=== PATIENT | female | born 1975 | race Caucasian/White ===

== ENCOUNTER 2018-03-06 14:29 | Emergency (ER) | payer MEDICARE, MEDICAID ==
[~2018-03-06] VITALS: Ht 162.6 cm; Wt 128.0 kg
[~2018-03-06 14:29] MED LIST: ALBU18HF2 IH; IBUP-1984 PO; METH-603 PO; NORCO10T PO
[2018-03-06 14:42] VITALS: BP 157/103
== END 2018-03-06 15:08 | disposition home or self-care (01) ==
LOC: ER 14:29
DX: L20.9 Atopic dermatitis, unspecified (principal); G43.909 Migraine, unspecified, not intractable, without status migrainosus; J45.909 Unspecified asthma, uncomplicated; G89.29 Other chronic pain; M54.9 Dorsalgia, unspecified; Z90.49 Acquired absence of other specified parts of digestive tract; Z90.710 Acquired absence of both cervix and uterus; Z88.1 Allergy status to other antibiotic agents; Z88.8 Allergy status to other drugs, medicaments and biological substances
CPT/HCPCS: 99284

== ENCOUNTER 2018-05-13 18:28 | Emergency (ER) | payer MEDICARE, MEDICAID ==
[~2018-05-13] VITALS: Ht 160 cm; Wt 131.0 kg
[2018-05-13] MEDS ORDERED: magnesium 2GM in 50ml NS 50 ML IV ONE (20:05)
[2018-05-13] MEDS ORDERED: acetaminophen 325mg tablet PO ONE (20:05)
[2018-05-13] MEDS ORDERED: aspirin 325mg tablet PO ONE (20:05)
[2018-05-13] MEDS ORDERED: proCHLORperazine 10 MG/2 ml inj IV ONE (20:05)
[2018-05-13] MEDS ORDERED: normal saline 1000ml 1,000 ML IV ONE (20:05)
[2018-05-13] MEDS ORDERED: diphenhydrAMINE 50 mg/ml inj IV ONE (20:05)
[2018-05-13 20:25] VITALS: BP 171/111
--- NOTE | 2018-05-13 20:25 | NUR ---
Patient medicated and updated on POC.
--- NOTE | 2018-05-13 20:41 | NUR ---
Saline and magnesium stopped at patient's request. She states her migraine is gone and wouuld liek to go home. Dr. Rush notified. Patient is now DC ready.
== END 2018-05-13 21:02 | disposition home or self-care (01) ==
LOC: ER 18:29
DX: G43.909 Migraine, unspecified, not intractable, without status migrainosus (principal); J45.909 Unspecified asthma, uncomplicated; G89.29 Other chronic pain; Z90.49 Acquired absence of other specified parts of digestive tract; Z90.710 Acquired absence of both cervix and uterus; Z90.89 Acquired absence of other organs; Z79.899 Other long term (current) drug therapy
CPT/HCPCS: 96365; 96375; 99284; J0780; J1200; J3475; J7030

== ENCOUNTER 2018-12-01 19:56 | Emergency (ER) | payer MEDICARE, MEDICAID ==
[~2018-12-01] VITALS: Ht 160 cm; Wt 127.7 kg
[2018-12-01 19:58] VITALS: BP 151/83
[2018-12-01] MEDS ORDERED: dexamethasone 4mg tablet PO ONE (20:25)
[2018-12-01] MEDS ORDERED: SULF1TAB49 PO (20:34)
[2018-12-01] MEDS ORDERED: BETA15CR4 TOP (20:34)
== END 2018-12-01 20:48 | disposition home or self-care (01) ==
LOC: ER 19:57
DX: L23.7 Allergic contact dermatitis due to plants, except food (principal); G43.909 Migraine, unspecified, not intractable, without status migrainosus; J45.909 Unspecified asthma, uncomplicated; G89.29 Other chronic pain; Z90.49 Acquired absence of other specified parts of digestive tract; Z90.710 Acquired absence of both cervix and uterus; Z98.890 Other specified postprocedural states; Z79.899 Other long term (current) drug therapy
CPT/HCPCS: 99283; J8540

== ENCOUNTER 2019-06-10 09:43 | Emergency (ER) | payer MEDICARE, MEDICAID ==
[~2019-06-10] VITALS: Ht 160 cm; Wt 133.1 kg
[~2019-06-10 09:43] MED LIST changes: +BETA15CR4 TOP
[2019-06-10 10:48] VITALS: BP 163/99
[2019-06-10] MEDS ORDERED: ketorolac tromethamine 15mg/ml inj. IM ONE (12:05)
[2019-06-10] MEDS ORDERED: diphenhydrAMINE 50 mg/ml inj IM ONE (12:05)
[2019-06-10] MEDS ORDERED: proCHLORperazine 10 MG/2 ml inj IM ONE (12:05)
== END 2019-06-10 13:04 | disposition home or self-care (01) ==
LOC: ER 09:44
DX: G43.909 Migraine, unspecified, not intractable, without status migrainosus (principal); J45.909 Unspecified asthma, uncomplicated; G89.29 Other chronic pain; F41.9 Anxiety disorder, unspecified; F43.9 Reaction to severe stress, unspecified; Z90.49 Acquired absence of other specified parts of digestive tract; Z90.710 Acquired absence of both cervix and uterus; Z79.82 Long term (current) use of aspirin; Z79.899 Other long term (current) drug therapy; Z90.89 Acquired absence of other organs
CPT/HCPCS: 96372; 99284; J0780; J1200; J1885

== ENCOUNTER 2020-08-03 03:18 | Emergency (ER) | payer MEDICARE, MEDICAID ==
[~2020-08-03] VITALS: Ht 160 cm; Wt 138.2 kg
[2020-08-03 03:35] VITALS: BP 183/109
[2020-08-03] MEDS ORDERED: ondansetron 4mg rapidly disintigrating tab PO ONE (03:45)
[2020-08-03] MEDS ORDERED: famotidine 20mg tablet PO ONE (03:45)
[2020-08-03] MEDS ORDERED: LIDOcaine Viscous 15ml cup MM ONE (03:45)
[2020-08-03] MEDS ORDERED: mag hydrox/Alum hydrox/simeth 30ml oral suspension PO ONE (03:45)
[2020-08-03] MEDS ORDERED: dicyclomine 10mg/ml 2ml ampule IM ONE (03:50)
[2020-08-03] MEDS ORDERED: sucralfate 1gm/10ml UD suspension PO ONE (04:35)
[2020-08-03] MEDS ORDERED: proCHLORperazine 10mg tablet PO ONE (04:35)
--- NOTE | 2020-08-03 04:37 | NUR ---
per [facility], urine and blood samples not required at this time.
== END 2020-08-03 05:16 | disposition home or self-care (01) ==
LOC: ER 03:18
DX: K29.00 Acute gastritis without bleeding (principal); R10.13 Epigastric pain; R11.10 Vomiting, unspecified; G43.909 Migraine, unspecified, not intractable, without status migrainosus; J45.909 Unspecified asthma, uncomplicated; K21.9 Gastro-esophageal reflux disease without esophagitis; G89.29 Other chronic pain; F41.9 Anxiety disorder, unspecified; Z90.49 Acquired absence of other specified parts of digestive tract; Z90.710 Acquired absence of both cervix and uterus; Z90.89 Acquired absence of other organs; Z98.890 Other specified postprocedural states; Z79.899 Other long term (current) drug therapy
CPT/HCPCS: 96372; 99284; J0500; Q0164

== ENCOUNTER 2021-07-20 16:49 | Emergency (ER) | payer MEDICARE, MEDICAID ==
[~2021-07-20] VITALS: Ht 160 cm; Wt 134.1 kg
[2021-07-20 16:57] VITALS: BP 140/109
[2021-07-20 17:37] LABS: URINE HCG NEGATIVE (NEG)
[2021-07-20 17:40] LABS: CLARITY,URINE CLOUDY (Clear); GLUCOSE, URINE NEGATIVE (Neg); KETONES,URINE NEGATIVE (Neg); LEUKOCYTE ESTERASE ,URINE NEGATIVE (Neg); NITRITES, URINE POSITIVE (Neg); OCCULT BLOOD,URINE LARGE (Neg); PROTEIN,URINE 30 mg/dl (Neg)
[2021-07-20 17:46] LABS: COLOR,URINE AMBER (Yellow); UA COLLECTION TYPE CLN CATCH MIDSTREAM
[2021-07-20 17:47] LABS: BACTERIA,URINE 1+ /HPF (Neg); MUCUS STRANDS FEW /LPF (Neg); RBC,URINE TNTC /HPF (0-2); SQUAMOUS EPITHELIAL CELL,UR MODERATE /LPF (FEW)
[2021-07-20] MEDS ORDERED: NITR100C6 PO (18:40)
[2021-07-20] MEDS ORDERED: phenazopyridine 100mg tablet PO ONE (18:45)
[2021-07-20] MEDS ORDERED: nitrofuran monohydrate/nitrofuran macrocrysal 100 MG (MacroBID) capsule PO ONE (18:45)
== END 2021-07-20 19:02 | disposition home or self-care (01) ==
LOC: ER 16:49
DX: N39.0 Urinary tract infection, site not specified (principal); G43.909 Migraine, unspecified, not intractable, without status migrainosus; J45.909 Unspecified asthma, uncomplicated; K21.9 Gastro-esophageal reflux disease without esophagitis; G89.29 Other chronic pain; Z87.440 Personal history of urinary (tract) infections; Z90.49 Acquired absence of other specified parts of digestive tract; Z98.891 History of uterine scar from previous surgery; Z90.710 Acquired absence of both cervix and uterus; Z79.899 Other long term (current) drug therapy; Z86.73 Personal history of transient ischemic attack (TIA), and cerebral infarction without residual deficits
CPT/HCPCS: 81001; 81025; 87077; 87088; 87186; 99283

== ENCOUNTER 2023-02-18 12:38 | Emergency (ER) | payer MEDICARE, MEDICAID ==
[~2023-02-18] VITALS: Ht 160 cm; Wt 124.1 kg
[~2023-02-18 12:38] MED LIST changes: +NITR100C6 PO
[2023-02-18 13:20] VITALS: BP 195/117; PULSE 87; RESP 19; O2SAT 96
--- NOTE | 2023-02-18 13:38 | NUR ---
pt airway patent, respiratory unlabored with out any signs of distress, patient pulse normal and stong
[2023-02-18] MEDS ORDERED: DIPH25CA83 PO (14:42)
[2023-02-18] MEDS ORDERED: methylPREDNISolone sod succ 125mg/2ml vial IM ONE (14:45)
[2023-02-18] MEDS ORDERED: diphenhydrAMINE 50 mg/ml inj IM ONE (14:45)
[2023-02-18 15:31] VITALS: TEMP 97.5
--- NOTE | 2023-02-19 12:45 | NUR ---
PT. DOCUMENTATION COMPLETED BY CABLE ARMORER HAS BEEN REVIEWED AND CONCUR WITH CABLE ARMORER.
== END 2023-02-18 15:42 | disposition home or self-care (01) ==
LOC: ER 12:39
DX: L24.89 Irritant contact dermatitis due to other agents (principal); G43.909 Migraine, unspecified, not intractable, without status migrainosus; J45.909 Unspecified asthma, uncomplicated; G89.29 Other chronic pain; M54.9 Dorsalgia, unspecified; F31.9 Bipolar disorder, unspecified; Z79.899 Other long term (current) drug therapy
CPT/HCPCS: 96372; 99284; J1200; J2930

== ENCOUNTER 2023-02-20 15:05 | Emergency (ER) | payer MEDICARE, MEDICAID ==
[~2023-02-20] VITALS: Ht 160 cm; Wt 123.6 kg
[~2023-02-20 15:05] MED LIST changes: +DIPH25CA83 PO
[2023-02-20 15:27] VITALS: BP 149/105; PULSE 92; RESP 18; TEMP 97.7; O2SAT 97
[2023-02-20] MEDS ORDERED: predniSONE 20 mg tablet PO ONE (16:05)
[2023-02-20] MEDS ORDERED: PRED20TA PO (16:29)
[2023-02-20] MEDS ORDERED: TRIA15CR61 TOP (16:29)
--- NOTE | 2023-02-20 16:40 | NUR ---
I have reviewed and agree with all interventions, assessments performed and documented by JESSICA Joseph.
== END 2023-02-20 16:40 | disposition home or self-care (01) ==
LOC: ER 15:05
DX: L25.9 Unspecified contact dermatitis, unspecified cause (principal); K21.9 Gastro-esophageal reflux disease without esophagitis; G43.909 Migraine, unspecified, not intractable, without status migrainosus; F31.9 Bipolar disorder, unspecified; Z90.49 Acquired absence of other specified parts of digestive tract
CPT/HCPCS: 99283; J7512

== ENCOUNTER 2023-02-23 18:46 | Emergency (ER) | payer MEDICARE, MEDICAID ==
[~2023-02-23] VITALS: Ht 160 cm; Wt 122.7 kg
[~2023-02-23 18:46] MED LIST changes: +PRED20TA PO; +TRIA15CR61 TOP
[2023-02-23 18:54] VITALS: BP 168/113; PULSE 99; RESP 16; O2SAT 97
[2023-02-23] MEDS ORDERED: dexamethasone sod phosphate 10mg/ml inj IM STA (19:28)
[2023-02-23] MEDS ORDERED: DEC4T PO (19:37)
== END 2023-02-23 20:09 | disposition home or self-care (01) ==
LOC: ER 18:47
DX: L23.7 Allergic contact dermatitis due to plants, except food (principal)
CPT/HCPCS: 96372; 99283; J1100

== ENCOUNTER 2023-09-08 17:36 | Emergency (ER) | payer MEDICARE, MEDICAID ==
[~2023-09-08] VITALS: Ht 160 cm; Wt 128.2 kg
[~2023-09-08 17:36] MED LIST changes: -PRED20TA PO; -TRIA15CR61 TOP
[2023-09-08 17:44] VITALS: BP 185/117; PULSE 95; RESP 18; TEMP 97.6; O2SAT 98
[2023-09-08] MEDS ORDERED: KEN0.1O TOP (18:02)
[2023-09-08] MEDS ORDERED: HYDR-3686 PO (18:02)
[2023-09-08] MEDS: triamcinolone acetonide 40mg/ml inj IM ONE (18:30)
== END 2023-09-08 18:35 | disposition home or self-care (01) ==
LOC: ER 17:36
DX: L23.7 Allergic contact dermatitis due to plants, except food (principal); G43.909 Migraine, unspecified, not intractable, without status migrainosus; J45.909 Unspecified asthma, uncomplicated; K21.9 Gastro-esophageal reflux disease without esophagitis; G89.29 Other chronic pain; M54.9 Dorsalgia, unspecified; F41.9 Anxiety disorder, unspecified; F32.A Depression, unspecified; Z90.49 Acquired absence of other specified parts of digestive tract
CPT/HCPCS: 96372; 99283; J3301

== ENCOUNTER 2023-12-16 16:29 | Emergency (ER) | payer MEDICARE, MEDICAID ==
[~2023-12-16] VITALS: Ht 160 cm; Wt 140.2 kg
[2023-12-16] MEDS ORDERED: CEPH-585 PO (17:32)
[2023-12-16] MEDS: cephalexin 250mg capsule PO ONE (18:05)
[2023-12-16] MEDS: bacitracin 15gm ointment TP ONE (18:05)
[2023-12-16 18:11] VITALS: BP 140/80; PULSE 88; RESP 18; TEMP 97.8; O2SAT 99
== END 2023-12-16 18:12 | disposition home or self-care (01) ==
LOC: ER 16:30
DX: L03.012 Cellulitis of left finger (principal); L03.011 Cellulitis of right finger; G43.909 Migraine, unspecified, not intractable, without status migrainosus; J45.909 Unspecified asthma, uncomplicated; K21.9 Gastro-esophageal reflux disease without esophagitis; G89.29 Other chronic pain; M54.9 Dorsalgia, unspecified; F41.9 Anxiety disorder, unspecified; F32.A Depression, unspecified; Z79.899 Other long term (current) drug therapy; Z79.1 Long term (current) use of non-steroidal anti-inflammatories (NSAID); Z79.2 Long term (current) use of antibiotics; Z90.49 Acquired absence of other specified parts of digestive tract; Z98.890 Other specified postprocedural states; Z90.710 Acquired absence of both cervix and uterus
CPT/HCPCS: 99283

== ENCOUNTER 2024-12-04 00:12 | Emergency (ER) | payer MEDICARE, MEDICAID ==
[~2024-12-04] VITALS: Ht 160 cm; Wt 144.1 kg
[~2024-12-04 00:12] MED LIST changes: +CEPH-585 PO
[2024-12-04 00:48] VITALS: TEMP 97.6
[2024-12-04] MEDS: ketorolac trometh 15mg/ml vial 15 MG/ML ML IV ONE (02:29)
--- NOTE | 2024-12-04 03:10 | Physician Documentation ---
History of Present Illness ~ Chief Complaint: Headache Stated Complaint: MIRGAINE Time Seen by MD: 02:02 Primary Medical Doctor: DR FERRARO Source: patient Mode of Arrival: POV Exam Limitations: no limitations Medication Reconciliation Allergies: Coded Allergies: No Known Allergies (Unverified , 12/16/23) Scheduled Albuterol Sulfate (Ventolin Hfa), 2 PUFFS IH PRN, (Reported) Betamethasone Dipropionate (Betamethasone Dipropionate), 1 APPLIC TOP Q12H Cephalexin*Monohydrate* (Keflex*), 1 CAP PO QID Hydrocodone Bit/Acetaminophen 10/325 MG* ([place] 10/325 MG*), 1 TAB PO Q8H, (Reported) Ibuprofen* (Motrin*), 800 MG PO PRN, (Reported) Methadone Hcl* (Dolophine*), 2 TAB PO Q4H, (Reported) Nitrofurantoin Monohyd/M-Cryst (Macrobid 100 mg Capsule), 1 CAP PO Q12H Scheduled PRN Diphenhydramine Hcl (Benadryl), 25 MG PO Q6H PRN for itching Past Medical History Past Medical History: Migraine, Asthma, GERD, UTI, Chronic Back Pain, Anxiety, Depression Past Surgical History: cholecystectomy, , hysterectomy, tonsillectomy Alcohol Use: None Drug Use: none Lives with: Spouse Lives In: Home Physical Exam Vital Signs: Temperature: 97.6, Source: Temporal, Heart Rate: 90, Respiratory Rate: 18, BP: 167/120, Pulse Oximetry: 97, Weight: 144.090 Oxygen Flow Rate: 0 Progress Results/Orders Results/Orders Completed Orders - JAVIER WOOD MD Prochlorperazine Inj (Compazine Inj) (12/04/24 02:10) Diphenhydramine Inj (Benadryl Inj.) (12/04/24 02:10) Ketorolac Trometh 15mg/Ml Vial (Toradol (12/04/24 02:10) Ondansetron Inj. (Zofran 4mg/2ml Vial) (12/04/24 03:15) Morphine 4mg/Ml Inj. (Morphine Inj.) (12/04/24 03:15) Medications Received in ER Medications (Trade) Dose Ordered Sig/Aly Route PRN Reason Start Time Stop Time Status Last Admin Dose Admin (Compazine inj) 10 mg ONCE ONCE IV 12/04/24 02:10 12/04/24 02:12 DC 12/04/24 02:28 10 MG (Benadryl inj.) 50 mg ONCE ONCE IV 12/04/24 02:10 12/04/24 02:12 DC 12/04/24 02:33 50 MG (Toradol injection) 15 mg ONCE ONCE IV 12/04/24 02:10 12/04/24 02:12 DC 12/04/24 02:29 15 MG Vital Signs 12/04/24 12/04/24 12/04/24 00:48 02:29 03:30 Temp 97.6 Pulse 90 84 Resp 18 18 18 B/P (MAP) 167/120 158/95 Pulse Ox 97 96 O2 Flow Rate 0 Departure Time of Disposition: 03:08 Disposition: 01 HOME / SELF CARE / HOMELESS Impression: Primary Impression: Migraine Qualified Codes: G43.919 - Migraine, unspecified, intractable, without status migrainosus Discharge Instructions: Chronic Migraine Headache, [id number] Additional Instructions: FOLLOW UP WITH YOUR DOCTOR NEEDED. RETURN IF SYMPTOMS RECUR. Education Educated: Patient, Family Educated regarding: diagnosis, treatment, need for follow up JAVIER WOOD MD Dec 04, 2024 03:09
[2024-12-04] MEDS ORDERED: morphine 4 MG/ML inj SYRINge IV PRN (03:15)
[2024-12-04] MEDS: ondansetron/PF 4mg/2ml inj IV ONE (03:20)
[2024-12-04 03:30] VITALS: BP 158/95; PULSE 84; RESP 18; O2SAT 96
== END 2024-12-04 03:31 | disposition home or self-care (01) ==
LOC: ER 00:12
DX: G43.919 Migraine, unspecified, intractable, without status migrainosus (principal); K21.9 Gastro-esophageal reflux disease without esophagitis; F41.9 Anxiety disorder, unspecified; F32.A Depression, unspecified; J45.909 Unspecified asthma, uncomplicated; Z79.899 Other long term (current) drug therapy; Z90.49 Acquired absence of other specified parts of digestive tract; Z90.710 Acquired absence of both cervix and uterus
CPT/HCPCS: 96374; 96375; 99284; J0780; J1200; J1885

== ENCOUNTER 2025-01-29 00:49 | Inpatient (IN) | payer MEDICARE, MEDICAID ==
[~2025-01-29] VITALS: Ht 160 cm; Wt 140.3 kg
[~2025-01-29 00:49] MED LIST changes: -CEPH-585 PO
[2025-01-29 02:24] LABS: MEAN PLATELET VOLUME 7.1 FL (7.4-10.4); RED CELL DISTRIBUTION WIDTH 14.9 % (11.5-14.5)
[2025-01-29 02:32] LABS: CREATININE 0.96 MG/DL (0.40-0.90); TOTAL CARBON DIOXIDE 29.1 MMOL/L (24-32); eCRCL 59 ML/MIN; eGFR 62 ML/MIN
--- NOTE | 2025-01-29 03:39 | RADIOLOGY REPORT ---
CHEST RADIOGRAPH Indication: sepsis r/o Technique: 1 view Comparison: None FINDINGS: Lines and Tubes: None Lungs/Pleura: No focal consolidation, pleural effusion or pneumothorax. Cardiomediastinum: Unremarkable. Other: No acute osseous abnormality. IMPRESSION: 1. No acute cardiopulmonary abnormality.
--- NOTE | 2025-01-29 04:38 | Physician Documentation ---
History of Present Illness ~ Chief Complaint: Leg Pain Stated Complaint: POSS STAPH INFECTION Time Seen by MD: 04:02 OK to notify your PCP?: Yes Primary Medical Doctor: DR FERRARO Source: patient, RN/, RN notes reviewed, old records Mode of Arrival: POV, Ambulatory Exam Limitations: no limitations HPI This pleasant female presents with some left ankle drummond erythema redness and cellulitis. Patient states it happened spontaneously about three days ago she was visiting an uncle but no bites no trauma just noticed who was a burning sensation next day it was red then she started having fevers chills today she was sweaty with some nausea aches pains some myalgias just not doing well. She became concerned she circled the area tonight she started feeling really bad this morning looked at her leg in the redness has expanded moving up her leg and with the fevers she thought she should come in for evaluation. She is otherwise in good health she denies smoking she denies diabetes she denies history of significant infections. She is now here for evaluation and care. Tetanus witin 5 years: No Medication Reconciliation Allergies: Coded Allergies: No Known Allergies (Unverified , 12/16/23) Scheduled Albuterol Sulfate (Ventolin Hfa), 2 PUFFS IH PRN, (Reported) Betamethasone Dipropionate (Betamethasone Dipropionate), 1 APPLIC TOP Q12H Hydrocodone Bit/Acetaminophen 10/325 MG* ([place] 10/325 MG*), 1 TAB PO Q8H, (Reported) Ibuprofen* (Motrin*), 800 MG PO PRN, (Reported) Methadone Hcl* (Dolophine*), 2 TAB PO Q4H, (Reported) Nitrofurantoin Monohyd/M-Cryst (Macrobid 100 mg Capsule), 1 CAP PO Q12H Scheduled PRN Diphenhydramine Hcl (Benadryl), 25 MG PO Q6H PRN for itching Past Medical History Past Medical History: Migraine, Asthma, GERD, UTI, Chronic Back Pain, Anxiety, Depression Past Surgical History: cholecystectomy, , hysterectomy, tonsillectomy Alcohol Use: None Drug Use: none Lives with: Spouse Lives In: Home Review of Systems All Other Systems at this time: Reviewed and Negative Physical Exam Vital Signs: RN Vital Signs have been reviewed: Yes, Temperature: 98.7, Source: Oral, Heart Rate: 101, Respiratory Rate: 18, BP: 150/101, Pulse Oximetry: 98, Weight: 140.300 Oxygen Flow Rate: 0 Physical Exam General: The patient is well developed, well nourished, nontoxic appearing and is in no acute distress. Skin: [place], warm and dry with no rashes. HEENT: Head was normocephalic and atraumatic. Eyes - pupils equal, round, reactive to light and accommodation. Extraocular movements were intact. Conjunctivae were nonicteric. The mouth and oropharynx were clear with moist mucous membranes. Neck: Supple and nontender. There was no jugular venous distention, l ymphadenopathy, Chest: Clear to auscultation bilaterally without wheezes, rales or rhonchi. No accessory muscle use. Heart: Rate regular rapid and rhythmic. S1, S2. No murmurs. Palpation of the chest wall was normal. Abdomen: Soft, nontender and nondistended. Positive bowel sounds. No guarding or rebound. Extremities: No cyanosis, clubbing positive trace bilateral edema. The patient moves all extremities. Pulses were equal and symmetric. Left drummond there is a large area of erythema warm to touch slightly tender no fluctuance no induration. Neurologic: Cranial nerves II-XII were intact. Sensation was intact to light touch throughout. Motor strength was 5/5 in all four extremities. Deep tendon reflexes were intact in both upper and lower extremities. Psychologic: The patient was oriented to person, place and time. The patient demonstrated appropriate judgement and insight. Progress Progress Note Hospitalist admitted the patient for further workup and care. Results/Orders Reviewed/noted all lab results: Yes Results/Orders Orders - GENA GARRISON MD Culture Blood (01/29/25 01:44) Urinalysis, Cult If Indicated (01/29/25 01:44) Chest,Single View (01/29/25 01:44) Monitor (01/29/25 01:44) Saline Lock (01/29/25 01:44) Potassium Cl Sr Tablet (K-Dur Tablet) (01/29/25 04:10) Page Hospitalist (01/29/25 04:42) Fill Out Med Reconciliation (01/29/25 04:42) Vancomycin 1gm 200ml H20 (Peg) (Vancomyc (01/29/25 04:50) Completed Orders - GENA GARRISON MD Cbc/Diff (01/29/25 01:44) Chest,Single View (01/29/25 01:44) Procalcitonin (01/29/25 01:44) BMP (01/29/25 01:44) Lacticsepsis (01/29/25 01:44) MG (01/29/25 02:09) Ceftriaxone/H4t-Qwafsxfu 1gm (Rocephin 1 (01/29/25 04:50) Medications Received in ER Medications (Trade) Dose Ordered Sig/Aly Route PRN Reason Start Time Stop Time Status Last Admin Dose Admin (K-DUR tablet) 40 meq ONCE PRN PO Potassium 3.0 or less 01/29/25 04:10 02/01/25 04:09 01/29/25 04:54 40 MEQ Ceftriaxone Sodium 50 ml @ 100 mls/hr ONCE ONCE IV 01/29/25 04:50 01/29/25 05:19 DC 01/29/25 04:59 100 MLS/HR Vital Signs 01/29/25 01/29/25 01/29/25 00:56 02:50 02:50 Temp 98.7 Pulse 109 101 Resp 16 18 16 B/P (MAP) 154/117 150/101 (117) Pulse Ox 98 98 O2 Flow Rate 0 Laboratory Tests Test 01/29/25 02:09 White Blood Count 13.4 H Red Blood Count 4.85 Hemoglobin 13.0 Hematocrit 38.3 Mean Corpuscular Volume 79.0 Mean Corpuscular Hemoglobin 26.8 L Mean Corpuscular Hemoglobin Concent 34.0 Red Cell Distribution Width 14.9 H Platelet Count 284 Mean Platelet Volume 7.1 L Neutrophils (%) (Auto) 77.4 H Lymphocytes (%) (Auto) 13.8 L Monocytes (%) (Auto) 7.5 Eosinophils (%) (Auto) 1.0 Basophils (%) (Auto) 0.3 Neutrophils # (Auto) 10.4 H Lymphocytes # (Auto) 1.9 Monocytes # (Auto) 1.0 H Eosinophils # (Auto) 0.1 Basophils # (Auto) 0.0 CBC Comment Sodium Level 139 Potassium Level 2.8 *L Chloride Level 100 Carbon Dioxide Level 29.1 Anion Gap 10 Blood Urea Nitrogen 18 Creatinine 0.96 H Estimated GFR/1.73 m2 62 BUN/Creatinine Ratio 18.8 Glucose Level 201 H Lactic Acid Level 1.1 Calcium Level 8.9 Magnesium Level 1.9 Albumin 3.1 L Procalcitonin 0.18 Chemistry Comments Microbiology Date/Time Source Procedure Growth Status 01/29/25 02:09 Blood Arm Right Blood Culture - Preliminary NEGATIVE (LESS THAN 24 HOURS) Resulted Re-Evaluation Re-Evaluation : Re-Evaluation: Improved Progress Patient was seen and examined. Patient is given reassurance. Patient has received IV fluids antibiotics blood cultures were obtained laboratory work was obtained. Patient showing some signs of SIRS no sepsis at this time. Patient does have a slight leukocytosis with a WBC of 13.4 hemoglobin hematocrit are both normal at 13 and 38 with 77% neutrophils. Patient's chemistry shows significant hypokalemia with a potassium of 2.8. Magnesium 1.9. Kidney functions were reassuring procalcitonin 0.18 and lactic acid 1.1. The patient received vancomycin and Rocephin. Patient is doing better with medications but will require admission. She does not appear well at this time. Chest x-ray was obtained and was reassuring. Continuous equipment monitor phototypesetting interpretation shows sinus tachycardia heart rate 100s, abnormal, my interpretation. Pulse oximetry monitor interpretation shows normal oxygenation at 98% room air, normal, my interpretation. EKG/XRAY/CT/US/VASC/MRI Chest X-Ray : Additional Comments CHEST RADIOGRAPH Indication: sepsis r/o Technique: 1 view Comparison: None FINDINGS: Lines and Tubes: None Lungs/Pleura: No focal consolidation, pleural effusion or pneumothorax. Cardiomediastinum: Unremarkable. Other: No acute osseous abnormality. IMPRESSION: 1. No acute cardiopulmonary abnormality. Electronically Signed by:JOY VEGA MD Date & Time: 01/29/25 0337 Dictated by: JOY VEGA MD Dictation date and time: 01/29/25 0154 Primary Care Provider: NO PRIMARY CARE PROVIDER Medical Decision Making Additional info obtained from: old records Ankle Diff Dx:Considerations: Include: Sprain, Septic, Other Departure Disposition: ADMITTED INPATIENT Admitted to Inpatient Unit: yes, to hospitalist Admission Level of Care: Med/Surg with Tele Impression: Primary Impression: Cellulitis of leg without foot, left Additional Impression: Hypokalemia Condition: Fair Referrals: NO PRIMARY CARE PROVIDER (PCP) Education Educated: Patient Educated regarding: diagnosis, treatment, prognosis, need for follow up Signature Scribe Signature: No scribed Attestation: The note accurately reflects work and decisions made by me.Gena Garrison MD 01/29/25 04:38 GENA GARRISON MD Jan 29, 2025 04:38
[2025-01-29] MEDS: VANCOMYCIN 1GM 200ML H20 (PEG) 200 ML IV ONE (04:50)
[2025-01-29] MEDS: potassium Cl 20 mEq SR tablet PO PRN ×2 (04:54→19:57)
[2025-01-29] MEDS: CefTRIAXone/D5W-Rocephin 1gm 50 ML IV ONE (04:59)
[2025-01-29] MEDS ORDERED: mag hydrox/Alum hydrox/simeth 30ml oral suspension PO PRN (05:15)
[2025-01-29] MEDS ORDERED: potassium Cl 20 mEq SR tablet PO PRN (05:15)
[2025-01-29] MEDS ORDERED: magnesium Cl slow-release 64mg tablet PO PRN (05:15)
[2025-01-29] MEDS ORDERED: magnesium sulf-water 2g/50mL 50 ML IV PRN (05:15)
[2025-01-29] MEDS ORDERED: magnesium hydroxide 30ml (MOM) UD suspension PO PRN (05:15)
[2025-01-29] MEDS ORDERED: HYDROcodone/acetaminophen 5mg/325mg tablet PO PRN (05:15)
[2025-01-29] MEDS ORDERED: potassium Cl 40MEQ/1/2NS 520ml 520 ML IV PRN (05:15)
[2025-01-29] MEDS ORDERED: magnesium sulf-water 4G/100mL 100 ML IV PRN (05:15)
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
[2025-01-29] MEDS: VANCOmycin 1250MG/NS 250ml Bag 250 ML IV ONE ×2 (06:01→09:02)
[2025-01-29] MEDS ORDERED: heparin, porcine 5000 units/ml vial SQ SCH (08:00)
[2025-01-29] MEDS: K and/or MAG REPLACEMENT MC SCH (08:00)
[2025-01-29] MEDS: pantoprazole 40mg Tablet.DR PO SCH (08:01)
[2025-01-29] MEDS: lactobacillus rhamnosus 10,000 MMU CELLS/CAPSULE PO SCH (09:05)
[2025-01-29] MEDS: docusate sod 100mg capsule PO SCH (09:05)
--- NOTE | 2025-01-29 09:14 | VASCULAR REPORT ---
[facility] Vascular Department [facility] [address] [place] [address] [email or web address] [place] [facility] Name : ANDERSON LING Date : 01/29/2025 Accession# : [id number] Birthdate : 1975 Sex : F Age : 49Y Heart Surgeon : Rex Garcia RVT Referring Dr. : BECKY CHAVES, Preliminary Report The above named patient was referred for a NON-INVASIVE LOWER EXTREMITY VENOUS EXAMINATION. The evaluation includes grayscale imaging, color flow Doppler and spectral analysis of the major deep and superficial lower extremity veins. Left Lower Extremity Venous Study for DVT Patient IN-PATIENT InaRSations Left lower extremity pain/swelling Risk Factors Obesity Vein Imaging (Left) CFV (L): Compressible, Spontaneous, Respirophasic, Augmentation Reflux: ms SFJ (L): Compressible, Spontaneous, Respirophasic, Augmentation Reflux: ms FEM (L): Compressible, Spontaneous, Respirophasic, Augmentation Reflux: ms POP (L): Compressible, Spontaneous, Respirophasic, Augmentation Reflux: ms DFV (L): Compressible, Spontaneous, Respirophasic, Augmentation Reflux: ms PTV (L): Compressible, Spontaneous, Respirophasic, Augmentation Reflux: ms GSV (L): Compressible, Spontaneous, Respirophasic, Augmentation Reflux: ms Peroneals (L): Compressible, Spontaneous, Respirophasic, Augmentation Reflux: ms Impression: No sonographic evidence for thrombus detected by image in the deep or superficial venous systems of the left lower extremity. All vessels interrogated were compressible and augment with distal compressions. Spontaneous, respirophasic flow is noted throughout the left lower extremity. Incidental finding: Prominent hyper vascularized lymph nodes seen in the left groin measuring 1.1 cm x 3.6 cm in transverse.
[2025-01-29 10:00] VITALS: BP 152/91; PULSE 97; RESP 18; TEMP 98.6
[2025-01-29 11:00] VITALS: RESP 16; O2SAT 96
[2025-01-29] MEDS: ringers solution, lacted 1,000 ML IV ONE ×3 (11:02→12:42)
[2025-01-29] MEDS: ringers solution, lacted 1,000 ML IV SCH (12:42)
[2025-01-29 13:13] LABS: LEUKOCYTE ESTERASE ,URINE SMALL (Neg); NITRITES, URINE POSITIVE (Neg); OCCULT BLOOD,URINE TRACE-INTACT (Neg)
[2025-01-29 13:22] LABS: UA COLLECTION TYPE NON-SPECIFIED
[2025-01-29 13:31] LABS: MUCUS STRANDS FEW /LPF (Neg); SQUAMOUS EPITHELIAL CELL,UR MODERATE /LPF (FEW)
[2025-01-29 13:35] LABS: URINE AMPHETAMINE SCREEN NEGATIVE (Neg); URINE BARBITUATE SCREEN NEGATIVE (Neg); URINE BENZODIAZEPINES SCREEN NEGATIVE (Neg); URINE COCAINE SCREEN NEGATIVE (Neg); URINE METHADONE SCREEN POSITIVE (Neg)
[2025-01-29 13:36] LABS: URINE CANNABINOID SCREEN NEGATIVE (Neg); URINE OPIATE SCREEN NEGATIVE (Neg); URINE PHENCYCLIDINE SCREEN NEGATIVE (Neg)
[2025-01-29] MEDS ORDERED: iohexol 300mg/ml 100ml inj. ONE (13:58)
[2025-01-29] MEDS ORDERED: CITA20TA19 PO (14:23)
[2025-01-29] MEDS ORDERED: NORT25CA PO (14:24)
[2025-01-29] MEDS ORDERED: HYDR25TA5 PO (14:24)
[2025-01-29] MEDS ORDERED: OMEP40CA21 PO (14:25)
[2025-01-29] MEDS ORDERED: SUMA100T16 PO (14:26)
[2025-01-29] MEDS ORDERED: PREG50CA PO (14:27)
[2025-01-29] MEDS ORDERED: BACL10TA2 PO (14:27)
[2025-01-29] MEDS ORDERED: LEVO100C5 PO (14:28)
[2025-01-29] MEDS ORDERED: DOL10T PO (14:30)
[2025-01-29] MEDS ORDERED: ESCI20TA39 PO (14:33)
[2025-01-29 18:00] VITALS: BP 132/71; PULSE 110; RESP 24; TEMP 100.2; O2SAT 95
[2025-01-29] MEDS ORDERED: morphine 4 MG/ML inj SYRINge IV PRN (19:15)
--- NOTE | 2025-01-29 19:28 | RADIOLOGY REPORT ---
INDICATION: cellulitis COMPARISON: None TECHNIQUE: CT of the left lower extremity was performed with contrast. Volume transverse images were obtained and reconstructed in multiple planes using bone and soft tissue algorithms. Radiation Dose Information: CT Dose: CTDI volume is 17 mGy. Dose-length product is 956 mGy*cm FINDINGS: The alignment is normal. The joint spaces are normal. There is no fracture, dislocation or aggressive osseous lesion. There is no joint effusion. Diffuse subcutaneous soft-tissue swelling is noted throughout the calf, ankle, and foot. IMPRESSION: No acute fracture or dislocation. Diffuse subcutaneous soft tissue swelling throughout the calf, ankle, and foot. This may represent cellulitis.
[2025-01-29] MEDS: enoxaparin 40mg/0.4ml syringe SQ SCH (19:56)
[2025-01-29] MEDS: HYDROcodone/acetaminophen 10/325mg tab PO PRN (19:57)
[2025-01-29 20:00] VITALS: RESP 24; O2SAT 95
[2025-01-29] MEDS: ondansetron/PF 4mg/2ml inj IV PRN (20:21)
[2025-01-29 22:00] VITALS: BP 138/89; PULSE 106; RESP 18; TEMP 99.5; O2SAT 91
[2025-01-30] MEDS ORDERED: albuterol 60 PUFF/8GM Inhaler (90mcg/1 puff) IH PRN (04:20)
[2025-01-30] MEDS: hydrALAZINE 20mg/ml inj. IV PRN (05:25)
[2025-01-30 06:00] VITALS: BP 160/98; PULSE 97; RESP 16; TEMP 98.9; O2SAT 93
[2025-01-30 06:30] LABS: MEAN PLATELET VOLUME 7.6 FL (7.4-10.4); RED CELL DISTRIBUTION WIDTH 14.9 % (11.5-14.5)
[2025-01-30 06:36] LABS: CHOL/HDL RATIO 4.4 (0.00-4.99); CREATININE 1.01 MG/DL (0.40-0.90); LDL CHOLESTEROL 94 MG/DL (50-100); TOTAL CARBON DIOXIDE 30.9 MMOL/L (24-32); eCRCL 56 ML/MIN; eGFR 59 ML/MIN
[2025-01-30] MEDS: CefTRIAXone/D5W-Rocephin 1gm 50 ML IV SCH (07:30)
[2025-01-30] MEDS: vancomycin/NS 1 GM ADD-VANTAGE 250 ML IV SCH (09:33)
[2025-01-30 10:00] VITALS: BP 98/62; PULSE 99; RESP 18; TEMP 97.9; O2SAT 94
[2025-01-30] MEDS ORDERED: DEXTROSE 15 GM of carb/4 tabs (each vial/BOTTLE has 4 tablets) PO PRN ×2 (11:15)
[2025-01-30] MEDS ORDERED: glucagon, human recombinant 1mg kit SUBCUT PRN (11:15)
[2025-01-30] MEDS ORDERED: dextrose 50%-water 50ml dispensing syringe IV PRN ×2 (11:15)
--- NOTE | 2025-01-30 11:18 | PROGRESS NOTE ---
Daily Progress Note Providers to CC ~ Antibiotic Timeout Antibiotic Ordered?: Yes Subjective No acute events overnight. Patient examined at bedside. No new complaints, not in acute distress. Patient denies chest pain, sob, palpitations, abdominal pain, n/v/d. Vss, labs notable for slightly uptrending white count, worsening margin of cellulitis. 1/2 blood cx positive. US neg DVT, CT shows cellulitis. Objective Vital Signs Date Time Temp Pulse Resp B/P (MAP) Pulse Ox O2 Delivery O2 Flow Rate FiO2 01/30/25 08:00 Room Air 0.0 01/30/25 05:25 97 01/30/25 05:24 16 01/29/25 22:00 99.5 138/89 (105) 91 Result Diagram: 01/30/2542 01/30/25541 Physical Exam General: Generalized weakness, A&Ox 3, NAD HEENT: Normocephalic, PERRLA Neck: Supple, trachea midline, no JVD Chest: Clear to auscultation bilaterally Cardiovascular: RRR, S1&S2 GI: Soft and nontender Extremities: No cyanosis/clubbing/or edema VP STRATEGIC PLANNING: CN II-XII intact, no focal deficits Musculoskeletal: No paraspinal muscle tenderness, no muscle spasm Skin: Tenderness and diffuse erythema of left anterior lower leg Problem\Assessment\Plan Assessment & Plan Cellulitis, LLE -US neg DVT, CT shows cellulitis, 1/2 blood cx positive, erythema seems to be slightly worsened from previous day, consulted ID Dr. Mcpherson Hypokalemia -K/Mg replacement per protocol, follow urine K Hyperglycemia Morbid obesity -hyper/hypoglycemic protocol Hypothyroidism -continue home levothyroxine Anxiety/depression: -home anxiolytics Code status: Full code DVT prophylaxis: Lovenox Date of Service: Jan 30, 2025 Billing Provider: BETTINA BLAND Common Visit Codes: [id number] INP/OBS CARE(HIGH) BETTINA BLAND Jan 30, 2025 11:18
[2025-01-30] MEDS: potassium Cl 20 mEq SR tablet PO STA (12:16)
[2025-01-30] MEDS: clindamycin-Cleocin 900mg/D5W 50 ML IV SCH (12:16)
[2025-01-30] MEDS: ceFAZolin 2gm/dext,iso 50mL 50 ML IV SCH (12:17)
[2025-01-30] MEDS: INSULIN LISPRO 100 UNIT/ML INSULN.PEN MULTI-DOSE SQ SCH (12:26)
[2025-01-30 17:44] VITALS: BP 123/72; PULSE 89; RESP 16; TEMP 97.3; O2SAT 96
[2025-01-30 20:00] VITALS: RESP 16; O2SAT 96
[2025-01-30] MEDS: levoTHYROXINE 100mcg tablet PO SCH (21:09)
[2025-01-30] MEDS: methadone 10mg tablet PO SCH (21:09)
[2025-01-30] MEDS: ESCITALOPRAM 10 mg tablet 10 MG TABLET PO SCH (21:10)
[2025-01-30] MEDS: nortriptyline 25mg capsule PO SCH (21:10)
[2025-01-30] MEDS: insulin glargine (Lantus) pen - multi-dose SQ SCH (21:19)
[2025-01-30 22:00] VITALS: BP 125/78; PULSE 95; RESP 20; TEMP 97.9; O2SAT 98
[2025-01-31] VITALS (8 sets, daily range): BP systolic 121–161; BP diastolic 63–95; PULSE 86–102; RESP 16–22; TEMP 97.2–99; O2SAT 93–98
--- NOTE | 2025-01-31 04:52 | CONSULTATION ---
DATE OF CONSULTATION: 01/30/2025 DICTATING PHYSICIAN: Jose Alberto Mcpherson MD REASON FOR CONSULTATION: I am seeing the patient at the request of SUZANNE Colon for evaluation of left lower extremity cellulitis. HISTORY OF PRESENT ILLNESS: The patient is a 49-year-old female with obesity who presented to this facility yesterday with worsening infection of her left lower leg. She states that her symptoms began a couple of days prior to admission. She has had cellulitis at this site in the past, but not this significant. She states that her left lower leg is a little bit more swollen than her right lower leg at baseline. She has demonstrated low-grade fever. She has a mild to moderate leukocytosis. She was initially treated with ceftriaxone and vancomycin, although she is only receiving 1 g of ceftriaxone daily. One of her blood cultures has turned positive, but this may be a contaminant. She does report quite a bit of pain when she tries to get up on her leg to ambulate. PAST MEDICAL HISTORY: Depression/anxiety, hypothyroidism, obesity, chronic pain. PAST SURGICAL HISTORY: Hysterectomy. cholecystectomy. ALLERGIES: None. MEDICATIONS: 1. Vancomycin. 2. Ceftriaxone. 3. Levothyroxine. 4. Escitalopram. 5. Nortriptyline. 6. Baclofen. 7. Pregabalin. 8. Enoxaparin. 9. Lactobacillus. 10. Colace. 11. Pantoprazole. FAMILY HISTORY: Noncontributory. SOCIAL HISTORY: She lives locally in [place]. She is . She does not smoke. PHYSICAL EXAMINATION: VITAL SIGNS: She is afebrile with a maximum temperature of 100.2. Vital signs are stable, although she does have some mild tachycardia. GENERAL: She is a pleasant middle-aged female, currently lying in bed, looking stable. HEENT: Sclerae anicteric. Mouth is clear. NECK: Supple. LUNGS: Clear to auscultation bilaterally. HEART: Mildly tachycardic and regular. ABDOMEN: Obese, soft, and nontender. EXTREMITIES: No significant edema. The left lower leg is more swollen compared to the right side. She does have erythema at the left lower leg dominantly at the anteromedial aspect. The lateral aspect appears to be spared. She has diffuse erythema and there is no area of fluctuance or abscess formation. LABORATORY DATA: Her white blood cell count is 16,000, hemoglobin 11.4, platelets 312,000, creatinine is 1.0. She does have one blood culture bottle positive with gram-positive cocci and clusters that may represent contamination. Ultrasound showed no evidence of DVT. She did have a CT scan that did not show abscess or gas. IMPRESSION: Cellulitis of the left lower leg in the setting of morbid obesity. The appearance is suggestive of a streptococcal infection. She is clinically stable, although she still has leukocytosis with low-grade fever and mild tachycardia. I will try to optimize her antibiotics to get this moving in the right direction a bit quicker. RECOMMENDATIONS: Ceftriaxone and vancomycin will be discontinued. I am going to start her on cefazolin with clindamycin. Both will be dosed fairly high given her weight. Cefazolin will be dosed at 2 g every 8 hours and clindamycin will be dosed at 900 mg every 8 hours. We will see how she does in the coming days. I thank you for allowing me to participate in Cristine's care. Jose Alberto Mcpherson MD TID: [id number] RECEIPT: [id number] YURY/DEUCE
[2025-01-31 05:45] LABS: MEAN PLATELET VOLUME 7.6 FL (7.4-10.4); RED CELL DISTRIBUTION WIDTH 15.1 % (11.5-14.5)
[2025-01-31 05:50] LABS: CREATININE 0.89 MG/DL (0.40-0.90); TOTAL CARBON DIOXIDE 32.3 MMOL/L (24-32); eCRCL 64 ML/MIN; eGFR 68 ML/MIN
[2025-01-31] MEDS ORDERED: VANCOMYCIN LEVEL IV ONE (08:30)
--- NOTE | 2025-01-31 15:44 | PROGRESS NOTE ---
Daily Progress Note Providers to CC Feels better today, less redness and pain of the leg ~ Central Line/PICC still needed: No Bettencourt-Non Protocol Bettencourt Indications Met/Not Met: F/C Indications Not Met Antibiotic Timeout Antibiotic Ordered?: Yes MRSA Education MRSA Education Provided to pt: Yes Subjective As above Objective Vital Signs Date Time Temp Pulse Resp B/P (MAP) Pulse Ox O2 Delivery O2 Flow Rate FiO2 01/31/25 10:00 97.6 101 20 161/95 (117) 97 Room Air 01/31/25 08:07 0 21 Vital signs, stable ,afebrile. Pulse Oximetry reflects adequate oxygenation. BMI is 54 General: well developed, well nourished. Awake , alert, and oriented x4, resting comfortably in the bed, in no acute distress . Skin: Warm, dry, no pallor, no rash or petechiae. HEENT: Atraumatic, normocephalic, EOMI, anicteric sclera B; pink conjunctiva; PERRLA, normal oropharynx, moist oral and nasal mucosa. Tympanic membrane , nose , throat clear. Neck: Trachea midline. Supple, full range of motion, no JVD, bruit , hepatojugular reflex , lymphadenopathy or masses, or other lesions Cardiac: Regular rhythm, regular rate no murmurs, rubs, or gallops. Normal S1 and S2, no S3 noticed. PMI is normal. Respiratory: Equal breath sounds bilaterally, no tachypnea; lungs clear to auscultation bilaterally, no wheezing ,rub or rales, or crackles. Chest wall is symmetric and without deformity. No signs of trauma. Chest wall is nontender. No signs of respiratory distress. Resonance is normal upon percussion bilaterally. Gastrointestinal: Abdomen symmetric, non-distended, soft, non-tender, normal bowel sounds x4 quadrant, normoactive, no hepatosplenomegaly , no masses , no bruit, no flank pain bilaterally. No voluntary guarding, rebound, or rigidity. No tenderness to percussion. No pulsatile masses. Equal femoral pulses. No Garay's sign or McBurney point tenderness. Back; no CVA tenderness bilaterally, no deformities. Neck and back are without deformity as well. No tenderness noted on palpation of the spinous processes. Spinous processes are midline. Cervical, thoracic, and lumbar paraspinal muscles are not tender and are without spasm. Locally, left lower leg plus three edema red tender to palpation neurovascular grossly intact Musculoskeletal: Extremities, normal range of motion, non-tender, muscle strength 5/5 x 4. Negative Homans signs bilaterally on lower extremity. Distal pulses full symmetrical, no clubbing, cyanosis , edema. Neurological: Speech is clear, alert, and oriented x 4. No motor or sensory deficit, deep tendon reflexes normal, cerebellar intact. Cranial nerves II-XII intact. Psych: Alert and or appropriate, normal affect. Vascular: Good distal pulses, which are equal x4; capillary refill less than 2 seconds. Lymphatic, no lymphadenopathy. Result Diagram: 01/31/2550901/31/25509 Problem\Assessment\Plan Assessment & Plan Cellulitis, LLE -US neg DVT, CT shows cellulitis, 1/2 blood cx positive, erythema seems to be slightly worsened from previous day, consulted ID Dr. Mcpherson; appreciate assistance and expertise Hypokalemia -K/Mg replacement per protocol, follow urine K Hyperglycemia Morbid obesity -hyper/hypoglycemic protocol Hypothyroidism -continue home levothyroxine Anxiety/depression: -home anxiolytics Code status: Full code DVT prophylaxis: Lovenox Sepsis Screening Reassessment Date: Jan 31, 2025 Date of Service: Jan 31, 2025 Billing Provider: ANJU DAVIS MD Common Visit Codes: [id number] INP/OBS CARE(HIGH) ANJU DAVIS MD Jan 31, 2025 15:44
--- NOTE | 2025-01-31 16:29 | PROGRESS NOTE ---
Progress Note Dictate Providers to CC ~ Subjective Subjective: She states that her leg is doing a bit better. She still reports pain at the affected site. Objective Objective: GENERAL: She is a pleasant middle-aged female, currently lying in bed, looking stable. LUNGS: Clear to auscultation bilaterally. HEART: Mildly tachycardic and regular. ABDOMEN: Obese, soft, and nontender. EXTREMITIES: No significant edema. The left lower leg is more swollen compared to the right side. She does have erythema at the left lower leg dominantly at the anteromedial aspect - improving Lab Results: 01/31/2550901/31/25509 Lab comments: 01/29 Blood culture with [facility] Problem\Assessment\Plan Additional Plan Cellulitis of the left lower leg with sepsis - improving Blood culture with [facility] - ?contamination Continue cefazolin and clindamycin F/U blood culture Would like to see WBC come down GIOVANNI KOEHLER MD Jan 31, 2025 16:29
[2025-01-31] MEDS: methadone 10mg tablet PO SCH (21:00)
[2025-02-01] VITALS (8 sets, daily range): BP systolic 130–183; BP diastolic 88–110; PULSE 95–99; RESP 14–18; TEMP 97.4–98.9; O2SAT 91–99
[2025-02-01 06:08] LABS: MEAN PLATELET VOLUME 7.8 FL (7.4-10.4); RED CELL DISTRIBUTION WIDTH 15.0 % (11.5-14.5)
[2025-02-01 06:32] LABS: CREATININE 0.64 MG/DL (0.40-0.90); TOTAL CARBON DIOXIDE 30.6 MMOL/L (24-32); eCRCL 89 ML/MIN; eGFR > 90 ML/MIN
--- NOTE | 2025-02-01 10:58 | PROGRESS NOTE ---
Progress Note Dictate Providers to CC ~ Subjective Subjective: She seems to be holding steady with slow progress. She still has pain at the affected site. No fever. Objective Objective: GENERAL: She is a pleasant middle-aged female, currently lying in bed, looking stable. LUNGS: Clear to auscultation bilaterally. HEART: Mildly tachycardic and regular. ABDOMEN: Obese, soft, and nontender. EXTREMITIES: No significant edema. The left lower leg is more swollen compared to the right side. She does have erythema at the left lower leg dominantly at the anteromedial aspect - slow improvement Lab Results: 02/01/2551602/01/25516 Problem\Assessment\Plan Additional Plan Cellulitis of the left lower leg with sepsis - slowly improving Blood culture with [facility] - ?contamination Continue cefazolin and clindamycin F/U blood culture Would like to see more improvement before discharge GIOVANNI KOEHLER MD Feb 01, 2025 10:58
--- NOTE | 2025-02-01 19:46 | PROGRESS NOTE ---
Daily Progress Note Providers to CC Feels better today, pain redness left lower leg decrease subsided ~ Central Line/PICC still needed: No Bettencourt-Non Protocol Bettencourt Indications Met/Not Met: F/C Indications Not Met Antibiotic Timeout Antibiotic Ordered?: Yes MRSA Education MRSA Education Provided to pt: Yes Subjective As above Objective Vital Signs Date Time Temp Pulse Resp B/P (MAP) Pulse Ox O2 Delivery O2 Flow Rate FiO2 02/01/25 11:25 99 18 91 Room Air* 0 21 02/01/25 10:00 98.9 148/98 (115) Vital signs, stable ,afebrile. Pulse Oximetry reflects adequate oxygenation. General: well developed, well nourished. Awake , alert, and oriented x4, resting comfortably in the bed, in no acute distress . Skin: Warm, dry, no pallor, no rash or petechiae. HEENT: Atraumatic, normocephalic, EOMI, anicteric sclera B; pink conjunctiva; PERRLA, normal oropharynx, moist oral and nasal mucosa. Tympanic membrane , nose , throat clear. Neck: Trachea midline. Supple, full range of motion, no JVD, bruit , hepatojugular reflex , lymphadenopathy or masses, or other lesions Cardiac: Regular rhythm, regular rate no murmurs, rubs, or gallops. Normal S1 and S2, no S3 noticed. PMI is normal. Respiratory: Equal breath sounds bilaterally, no tachypnea; lungs clear to auscultation bilaterally, no wheezing ,rub or rales, or crackles. Chest wall is symmetric and without deformity. No signs of trauma. Chest wall is nontender. No signs of respiratory distress. Resonance is normal upon percussion bilaterally. Gastrointestinal: Abdomen symmetric, non-distended, soft, non-tender, normal bowel sounds x4 quadrant, normoactive, no hepatosplenomegaly , no masses , no bruit, no flank pain bilaterally. No voluntary guarding, rebound, or rigidity. No tenderness to percussion. No pulsatile masses. Equal femoral pulses. No Garay's sign or McBurney point tenderness. Back; no CVA tenderness bilaterally, no deformities. Neck and back are without deformity as well. No tenderness noted on palpation of the spinous processes. Spinous processes are midline. Cervical, thoracic, and lumbar paraspinal muscles are not tender and are without spasm. Locally, left lower leg plus three edema improving, tender to palpation red Musculoskeletal: Extremities, normal range of motion, non-tender, muscle strength 5/5 x 4. Negative Homans signs bilaterally on lower extremity. Distal pulses full symmetrical, no clubbing, cyanosis , edema. Neurological: Speech is clear, alert, and oriented x 4. No motor or sensory deficit, deep tendon reflexes normal, cerebellar intact. Cranial nerves II-XII intact. Psych: Alert and or appropriate, normal affect. Vascular: Good distal pulses, which are equal x4; capillary refill less than 2 seconds. Lymphatic, no lymphadenopathy. Result Diagram: 02/01/2551602/01/25516 Problem\Assessment\Plan Assessment & Plan Cellulitis, LLE -US neg DVT, CT shows cellulitis, 1/2 blood cx positive, erythema seems to be slightly worsened from previous day, consulted ID Dr. Mcpherson; appreciate assistance and expertise Hypokalemia -K/Mg replacement per protocol, follow urine K Hyperglycemia Morbid obesity -hyper/hypoglycemic protocol Hypothyroidism -continue home levothyroxine Anxiety/depression: -home anxiolytics Code status: Full code DVT prophylaxis: Lovenox Date of Service: Feb 01, 2025 Billing Provider: ANJU DAVIS MD Common Visit Codes: [id number] INP/OBS CARE(HIGH) ANJU DAVIS MD Feb 01, 2025 19:46
[2025-02-02 00:30] VITALS: BP 165/98; PULSE 95
[2025-02-02 03:30] VITALS: BP 143/95; PULSE 97
[2025-02-02 05:57] LABS: MEAN PLATELET VOLUME 7.3 FL (7.4-10.4); RED CELL DISTRIBUTION WIDTH 15.3 % (11.5-14.5)
[2025-02-02 06:00] VITALS: BP 153/99; PULSE 85; RESP 15; TEMP 97.3; O2SAT 93
[2025-02-02 06:13] LABS: CREATININE 0.66 MG/DL (0.40-0.90); TOTAL CARBON DIOXIDE 33.9 MMOL/L (24-32); eCRCL 86 ML/MIN; eGFR > 90 ML/MIN
[2025-02-02 08:10] VITALS: RESP 16
[2025-02-02 09:11] LABS: BANDS% (MANUAL) 1.0 % (0-10); EOSINOPHILS % (MANUAL) 4.0 % (0-6); LYMPHOCYTES % (MANUAL) 13.0 % (21-51); METAMYLEOCYTES% (MANUAL) 1.0 % (0-0); MONOCYTES % (MANUAL) 7.0 % (2-12); NEUTROPHILS % (MANUAL) 74.0 % (42-75); PLATELET ESTIMATE NORMAL
[2025-02-02 10:00] VITALS: BP 130/72; PULSE 96; RESP 18; TEMP 97.8; O2SAT 96
[2025-02-02 10:16] VITALS: PULSE 94; RESP 20; O2SAT 96
--- NOTE | 2025-02-02 11:08 | PROGRESS NOTE ---
Progress Note Dictate Providers to CC ~ Subjective Subjective: She states that her leg is feeling a little bit better. She feels comfortable going home today. Objective Objective: GENERAL: She is a pleasant middle-aged female, currently lying in bed, looking stable. LUNGS: Clear to auscultation bilaterally. HEART: Regular rate and rhythm ABDOMEN: Obese, soft, and nontender. EXTREMITIES: No significant edema. The left lower leg is more swollen compared to the right side. She does have erythema at the left lower leg dominantly at the anteromedial aspect - slow improvement Lab Results: 02/02/25 0515 02/02/2515 Problem\Assessment\Plan Additional Plan Cellulitis of the left lower leg with sepsis - slowly improving Blood culture contaminated Continue cefazolin and clindamycin Convert to oral therapy and discharge home Plan for one more week of therapy GIOVANNI KOEHLER MD Feb 02, 2025 11:08
[2025-02-02] MEDS ORDERED: CEPH500C2 PO (12:28)
[2025-02-02] MEDS ORDERED: CLIN-232 PO (12:28)
[2025-02-02] MEDS ORDERED: METF-1203 PO (14:37)
--- NOTE | 2025-02-02 19:41 | DISCHARGE SUMMARY ---
Discharge Summary Providers to CC Feels better today asking to be discharged home, cleared by Infectious disease doctor to be discharged ~ Discharge Summary Assessment Left lower leg cellulitis Hypokalemia Anxiety/depression Hypothyroidism Migraines Chronic back pain Lower limb varicosities Morbid obesity Admission Diagnosis: CELLULITIS Admission Diagnosis Comment: Left lower leg cellulitis Hypokalemia Anxiety/depression Hypothyroidism Migraines Chronic back pain Lower limb varicosities Morbid obesity Hospital Course DATE OF ADMISSION: January 29, 2025 DATE OF DISCHARGE: February 02, 2025 Discharge Diagnosis\Comment: Left lower leg cellulitis Hypokalemia Anxiety/depression Hypothyroidism Migraines Chronic back pain Lower limb varicosities Morbid obesity Operations\Procedures: None Consultants: Infectious disease doctor Complications: None Condition on DC: Stable Discharge Summary: 49-year-old morbidly obese female patient with a past medical history of hypothyroidism, anxiety/depression, migraines and chronic back pain on methadone presents to the hospital with complaints of new onset left lower limb erythema. Her symptoms had acutely begun two days ago with left lower limb erythema, pain radiating up the left upper extremity, tenderness, fevers with a T-max of a 102, chills, and fatigue. There was no recollection of inciting trauma or insect bites. No prior similar episodes. No recent sick contacts either. To admission patient was extensively evaluated and treated he will condition significantly improved today she was cleared for discharge by Infectious disease doctor, medication reconciled, follow-up PCP in the morning, today on physical exam Vital signs, stable ,afebrile. Pulse Oximetry reflects adequate oxygenation. General: well developed, well nourished. Awake , alert, and oriented x4, resting comfortably in the bed, in no acute distress . Skin: Warm, dry, no pallor, no rash or petechiae. HEENT: Atraumatic, normocephalic, EOMI, anicteric sclera B; pink conjunctiva; PERRLA, normal oropharynx, moist oral and nasal mucosa. Tympanic membrane , nose , throat clear. Neck: Trachea midline. Supple, full range of motion, no JVD, bruit , hepatojugular reflex , lymphadenopathy or masses, or other lesions Cardiac: Regular rhythm, regular rate no murmurs, rubs, or gallops. Normal S1 and S2, no S3 noticed. PMI is normal. Respiratory: Equal breath sounds bilaterally, no tachypnea; lungs clear to auscultation bilaterally, no wheezing ,rub or rales, or crackles. Chest wall is symmetric and without deformity. No signs of trauma. Chest wall is nontender. No signs of respiratory distress. Resonance is normal upon percussion bilaterally. Gastrointestinal: Abdomen symmetric, non-distended, soft, non-tender, normal bowel sounds x4 quadrant, normoactive, no hepatosplenomegaly , no masses , no bruit, no flank pain bilaterally. No voluntary guarding, rebound, or rigidity. No tenderness to percussion. No pulsatile masses. Equal femoral pulses. No Garay's sign or McBurney point tenderness. Back; no CVA tenderness bilaterally, no deformities. Neck and back are without deformity as well. No tenderness noted on palpation of the spinous processes. Spinous processes are midline. Cervical, thoracic, and lumbar paraspinal muscles are not tender and are without spasm. Musculoskeletal: Extremities, normal range of motion, non-tender, muscle strength 5/5 x 4. Negative Homans signs bilaterally on lower extremity. Distal pulses full symmetrical, no clubbing, cyanosis , edema. Locally, left lower leg plus two edema mild tender to palpation minimal redness minimal swelling Neurological: Speech is clear, alert, and oriented x 4. No motor or sensory deficit, deep tendon reflexes normal, cerebellar intact. Cranial nerves II-XII intact. Psych: Alert and or appropriate, normal affect. Vascular: Good distal pulses, which are equal x4; capillary refill less than 2 seconds. Lymphatic, no lymphadenopathy. *Problems/Diagnosis: (1) Cellulitis Status: Acute (2) Hypokalemia Status: Acute (3) Cellulitis of leg without foot, left Status: Acute Total Time Spent on D/C: > 30 Minutes Date of Service: Feb 02, 2025 Billing Provider: ANJU DAVIS MD Common Visit Codes: 91364-[id number] DISCH DAY >30min ANJU DAVIS MD Feb 02, 2025 19:41
== END 2025-02-02 14:50 | disposition home or self-care (01) | DRG 871 ==
LOC: ER 00:50 → ED HOLD 05:21 → ORTHO 4S 09:35
PROVIDERS: ADMIT Internal Medicine; ATTEND Nurse Practitioner Family
DX: A41.9 Sepsis, unspecified organism (principal); N17.0 Acute kidney failure with tubular necrosis; L03.116 Cellulitis of left lower limb; Z68.43 Body mass index [BMI] 50.0-59.9, adult; E66.01 Morbid (severe) obesity due to excess calories; E87.6 Hypokalemia; K21.9 Gastro-esophageal reflux disease without esophagitis; J45.909 Unspecified asthma, uncomplicated; E03.9 Hypothyroidism, unspecified; I83.93 Asymptomatic varicose veins of bilateral lower extremities; F32.A Depression, unspecified; F41.9 Anxiety disorder, unspecified; G43.909 Migraine, unspecified, not intractable, without status migrainosus; Z79.899 Other long term (current) drug therapy; Z90.710 Acquired absence of both cervix and uterus; Z90.49 Acquired absence of other specified parts of digestive tract
CPT/HCPCS: 36415; 71045; 73701; 80048; 80061; 80202; 80305; 81001; 82948; 83036; 83605; 83735; 84132; 84145; 84443; 85007; 85025; 87040; 87077; 87081; 87088; 87186; 93971; 94760; 96365; 96367; 99285; A6258; G0378; J0360; J0690; J0696; J1650; J1815; J2405; J3373; J3374; J3490; J7040; J7120; Q9967